=== PATIENT | female | born 1995 | race Caucasian/White ===

== ENCOUNTER 2022-06-08 22:09 | Inpatient (IN) | payer OTHER ==
[~2022-06-08] VITALS: Ht 165.1 cm; Wt 55.8 kg
[2022-06-08 22:35] VITALS: BP 120/72
[2022-06-09] VITALS (8 sets, daily range): BP systolic 102–128; BP diastolic 65–74
[2022-06-09] LABS: BASO # 0.1 10*3/uL (0.0-0.1); BASO % 0.8 % (0.0-1.0); EOS % 0.5 % (1.0-4.0); HEMATOCRIT 44.5 % (37.0-47.0); MEAN CELL VOLUME 93.3 fl (81.0-99.0); MEAN CORPUSCULAR HGB 31.4 pg (27.0-31.0); MEAN CORPUSCULAR HGB CONC 33.7 g/dl (33.0-37.0); MEAN PLATELET VOLUME 9.2 fl (9.6-12.3); MONO # 0.3 10*3/uL (0.1-1.0); NEUT % 62.4 % (47.0-73.0); PLATELET COUNT AUTOMATED 267 10*3/uL (130-400); RED BLOOD COUNT 4.77 10*6/uL (4.10-5.10); RED CELL DISTRI WIDTH 12.9 % (0-14.5); WHITE BLOOD COUNT 6.4 10*3/uL (4.8-10.8)
[2022-06-09 00:16] LABS: ALKALINE PHOSPHATASE 64 U/L (46-116); BUN 5 mg/dl (9-23); CHLORIDE 102 mmol/L (98-107); ETHYL ALCOHOL 293.3 mg/dl (<3); POTASSIUM 4.1 mmol/L (3.4-5.1); SGPT/ALT 52 U/L (10-49); TOTAL PROTEIN 7.6 gm/dL (6.0-8.0)
[2022-06-09 00:57] LABS: BILIRUBIN Negative (Negative); BLOOD 1+ (Negative); CLARITY Clear (Clear); COLOR Yellow (Yellow); GLUCOSE Negative (Negative); KETONE 1+ (Negative); LEUKO ESTERASE Negative (Negative); NITRITE Negative (Negative); PH 5.5 (4.5-8.0); SPECIFIC GRAVITY <= 1.005 (1.001-1.030); UROBILINOGEN 0.2 E.U./dl (0.0-1.0)
[2022-06-09 01:07] LABS: BACTERIA 2+; EPITHELIAL CELLS 21-30
[2022-06-09 01:08] LABS: WBC 0-2 wbc/hpf (0-5)
[2022-06-10] VITALS: BP 118/68
[2022-06-10 08:00] VITALS: BP 104/68
[2022-06-10 12:00] VITALS: BP 103/61
[2022-06-10 16:00] VITALS: BP 112/69
[2022-06-10 20:00] VITALS: BP 101/69
[2022-06-11] VITALS: BP 108/68
[2022-06-11 08:00] VITALS: BP 101/70
[2022-06-11 12:00] VITALS: BP 104/54
[2022-06-11] MEDS ORDERED: METHOCARBAMOL750 M1 PO (13:10)
[2022-06-11] MEDS ORDERED: ONDANSETRON HYDR4 M1 PO (13:10)
[2022-06-11] MEDS ORDERED: DICYCLOMINE HYD20 MG PO (13:10)
== END 2022-06-11 16:36 | disposition home or self-care (01) | DRG 897 ==
LOC: ED 22:09 → 4E 06-09 07:18 → EDHOLD 06-09 07:18 → 4E 06-09 12:28
PROVIDERS: Emergency Medicine; ADMIT Internal Medicine; ATTEND Internal Medicine
DX: F10.939 Alcohol use, unspecified with withdrawal, unspecified (principal); E87.20 Acidosis, unspecified; R74.01 Elevation of levels of liver transaminase levels; F17.200 Nicotine dependence, unspecified, uncomplicated